=== PATIENT | female | born 1995 | race American Indian/Alaskan Native ===

== ENCOUNTER 2020-04-23 13:17 | Emergency (ER) | payer OTHER ==
[2020-04-23 13:50] VITALS: BP 139/87
[2020-04-23] MEDS ORDERED: ACETAMINOPHEN 500 MG TAB PO ONE (15:30)
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
== END 2020-04-23 17:24 | disposition home or self-care (01) ==
LOC: ED 13:17
DX: S52.501A Unspecified fracture of the lower end of right radius, initial encounter for closed fracture (principal); S09.90XA Unspecified injury of head, initial encounter; Z79.899 Other long term (current) drug therapy; V49.49XA Driver injured in collision with other motor vehicles in traffic accident, initial encounter; Y92.410 Unspecified street and highway as the place of occurrence of the external cause; Y93.89 Activity, other specified; Y99.8 Other external cause status
CPT/HCPCS: 70450; 72125